=== PATIENT | male | born 1960 | race Caucasian/White ===

== ENCOUNTER 2024-08-19 16:40 | Inpatient (IN) ==
[2024-08-19] MEDS: MoRPHine SULFATE 2 MG/ML CARP ONE ×2 (16:50→16:58)
[2024-08-19] MEDS: NITROGLYCERIN/D5W 100MCG/ML 250 ML IV SCH (16:51)
[2024-08-19] MEDS: SODIUM CHLORIDE 0.9% 1,000 ML IV SCH (16:56)
[2024-08-19] MEDS: MoRPHine SULFATE 4 MG/ML 1 ML CARP\\VIAL IV STA (16:59)
[2024-08-19 17:04] LABS: iSTAT Creatinine 1.2 mg/dl (0.6-1.3); iSTAT Ionized Calcium 1.02 mmol/l (1.12-1.32)
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
[2024-08-19 17:08] LABS: Basophils # (auto) 0.07 K/uL (0.00-0.20); Basophils % (auto) 0.6 %; Eosinophils % (auto) 0.9 %; Hematocrit (blood only) 42.6 % (42.0-52.0); Hemoglobin 15.2 g/dl (14.0-18.0); Immature Granulocytes # (auto) 0.06 K/uL (0.01-0.20); Immature Granulocytes % (auto) 0.6 %; Lymphocytes # (auto) 2.22 K/uL (1.20-3.40); Lymphocytes % (auto) 20.4 %; Mean Corpuscular Hemoglobin 30.3 pg (25.0-34.0); Mean Corpuscular Hgb Conc 35.7 g/dL (32.0-36.0); Mean Corpuscular Volume 84.9 fL (80.0-100.0); Mean Platelet Volume 11.9 fL (9.4-12.4); Monocytes # (auto) 0.59 K/uL (0.11-0.59); Monocytes % (auto) 5.4 %; Neutrophils # (auto) 7.86 K/uL (1.40-6.50); Neutrophils % (auto) 72.1 %; Platelet Count 222 K/uL (130-400); RDW Coefficient of Variation 12.9 % (11.5-14.5); RDW Standard Deviation 39.6 fL (36.4-46.3); Red Blood Count 5.02 M/uL (4.70-6.10)
[2024-08-19] MEDS: TICAGRELOR 90 MG TAB PO ONE (17:12)
[2024-08-19] MEDS: HEPARIN SOD (PORCINE) 1000 UNIT/ML IV ONE (17:13)
--- NOTE | 2024-08-19 17:13 | XRay Report ---
EXAM: Radiograph of the Chest 1 View INDICATION: Chest pain. TECHNIQUE: Frontal view of the chest. COMPARISON: No relevant prior studies available. FINDINGS: Lungs and pleural spaces: There is a suspected small right subpulmonic pleural effusion with lateral deviation of the diaphragmatic dome. No pneumothorax. Diffuse prominent pulmonary vasculature without pulmonary edema or infiltrate. Heart: Prominent cardiac shadow accentuated by technique. Mediastinum: Normal contour. Bones/joints: No fracture, erosion or dislocation. Soft tissues: No abnormality noted. No radiopaque foreign body noted. Upper abdomen: No abnormality noted. IMPRESSION: Suspect small subpulmonic right pleural effusion and pulmonary vascular congestion. No pulmonary edema. ACT 112: Negative or not required by law. Electronically signed by Katherine Figueroa 08-19-2024 5:12 PM
[2024-08-19] MEDS: PANTOprazole 40 MG/10 ML SYR IV ONE (17:17)
[2024-08-19 17:27] LABS: Albumin Globulin Ratio 1.8 (0.9-2); Albumin Level 4.7 gm/dl (3.4-5.0); BUN Creatinine Ratio 16.9 (10-20); Bilirubin,Total 0.6 mg/dl (0.2-1.0); Calcium 9.8 mg/dl (8.6-10.3); Creatinine Clr Calc Pharmacy 69.7 ml/min; Globulin 2.6 gm/dl (2.5-4.0); Total Protein 7.3 gm/dl (6.0-8.3)
[2024-08-19] MEDS: MoRPHine SULFATE 2 MG/ML CARP IV PRN (17:30)
[2024-08-19 17:35] LABS: Partial Thromboplastin Ratio 0.9; Partial Thromboplastin Time 23 Seconds (21-31); Prothrombin Time 10.4 Seconds (9.0-12.0)
[2024-08-19 17:42] LABS: Thyroid Stimulating Hormone 1.102 uIu/ml (0.300-4.500)
--- NOTE | 2024-08-19 17:42 | Pre Anesthesia Assessment ---
Date of Service August 19, 2024 Pre Sedation Assessment Vital Signs Temp Pulse Pulse Resp BP BP Pulse Ox 08/19/24 17:30 134/94 08/19/24 17:26 74 08/19/24 17:22 130/90 08/19/24 17:21 76 21 99 08/19/24 17:18 87 17 99 08/19/24 17:15 145/91 H 08/19/24 17:06 150/99 H 08/19/24 16:57 99 08/19/24 16:57 99 08/19/24 16:43 97.3 F L 85 20 153/98 H 99 08/19/24 16:43 99 08/19/24 16:43 97.3 F L 75 20 153/98 H 99 O2 Del Method 08/19/24 17:30 08/19/24 17:26 08/19/24 17:22 08/19/24 17:21 08/19/24 17:18 08/19/24 17:15 08/19/24 17:06 08/19/24 16:57 Room Air 08/19/24 16:57 Room Air 08/19/24 16:43 Room Air 08/19/24 16:43 Room Air 08/19/24 16:43 Room Air Cardiovascular + regular rate Respiratory + respiratory effort normal Pre-Sedation Airway Assessment Smoking Status: Never smoker Hx Sleep Apnea: No Hx Difficult Intubation: No Short, Thick Neck: No Thyromental Distance: < 3.5 Finger Breadths Oral Cavity: + Dental Abnormalities Mallampati Class: III ASA: ASA3 Procedure Planning Contraindications for Sedation: none Current Medications Reviewed: Yes Notes The planned sedation has been discussed with the patient. Informed Consent was obtained. I have identified the patient, determined the appropriateness of sedation and have assessed the patient immediately prior to the procedure. All medicine(s) and interventions are by my order.
[2024-08-19 17:43] LABS: Troponin I High Sensitivity 73.3 pg/ml (0-20)
[2024-08-19] MEDS: niCARdipine HCL INJ 2.5 MG/ML 10 ML AMP ONE (17:48)
[2024-08-19] MEDS: niCARdipine 2,000 MCG/20 ML SYR ONE (17:48)
[2024-08-19] MEDS: NITROGLYCERIN/D5W 100MCG/ML 20ML SYR ONE (17:48)
--- NOTE | 2024-08-19 17:48 | Cardiology Consultation ---
Date of Consultation August 19, 2024 Assessment & Plan (1) ST elevation myocardial infarction (STEMI) of anterior wall: Plan Presentation consistent with anterior STEMI and recommend proceeding with emergent cardiac catheterization and likely primary PCI. No apparent contraindications to procedure. Discussed risks, benefits, alternatives of procedure with patient and they are willing to proceed. Given IV heparin and ticagrelor 180 mg in the ED. Further recommendations pending findings of coronary angiography. History of Present Illness History of Present Illness Mr. Judd is a 64-year-old man here with acute chest pain and ECG concerning for acute NC. Patient seen emergently in the ED after heart alert activated after persistent chest pain and ECG showing anterior ST elevation. He was previously seen by Dr. Salinas once for ASCVD primary prevention in the setting of significant family history. He had a normal exercise stress test 12/2021. Echo showed hyperdynamic LV, mild LVH and no significant valve disease. Other cardiac risk factors include borderline diabetes on metformin, hypertension, dyslipidemia (statin intolerance). Other medical issues include lumbar stenosis, osteoarthritis, GERD, migraines. Chest pain began approximately 45 minutes prior to arrival (1615) while out hunting. Describes substernal pain with associated nausea, diarrhea and diaphoresis. Denies similar symptoms in the past. Given nitroglycerin in route. Chest pain ongoing on arrival and persisted despite sublingual and IV nitroglycerinm hemodynamically stable. EKG showed sinus rhythm with anterior ST elevations. Family history: Brother from [place] at age 59, father from [place] at 67. Sisters with diabetes. Social history: and lives with his . 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 Allergies Allergy/AdvReac Type Severity Reaction Status Date / Time No Known Allergies Allergy Verified 07/18/24 16:28 Home Medications Medication Instructions Recorded Confirmed Type esomeprazole magnesium 20 mg 20 mg PO QPM 09/19/21 08/19/24 History capsule,delayed release (Nexium) diclofenac sodium 75 mg 75 mg PO QPM #90 tabs 02/04/24 08/19/24 Rx tablet,delayed release lisinopril 20 mg tablet 20 mg PO QPM #90 tabs 02/16/24 08/19/24 Rx rizatriptan 10 mg tablet 10 mg PO Q2H PRN migraine headache 05/23/24 08/19/24 Rx #10 tabs acetaminophen 500 mg tablet 1,000 mg PO Q6H PRN Pain/Fever 06/23/24 08/19/24 History multivitamin 1 tab PO QAM 06/23/24 08/19/24 History metformin 500 mg tablet 500 mg PO DAILY #90 tabs 08/07/24 08/19/24 Rx Patient History Medical History Dyslipidemia Hypertension Cardiac murmur hx - no problems currently Heartburn Surgical History History of cataract surgery No pertinent past surgical history Family History Sister FHx: diabetes mellitus Diabetes Mother FHx: diabetes mellitus Diabetes Father FHx: diabetes mellitus Diabetes Other No family history of adverse response to anesthesia Denies family history of Ovarian cancer Prostate cancer Dementia Depression Heart disease Myocardial infarction Breast cancer Lung cancer Colorectal cancer Stroke Social History Smoking Status: Never smoker Tobacco Type: Smokeless Tobacco (Dip or Chew) Age Started Using Tobacco: 21; Second Hand Exposure: Yes; Do You Dip or Chew Tobacco: Yes (1 can/2 days (advised)); Hx Alcohol Use: No Hx Substance Use: No Preferred Language: Italian Communication Ability: Effective Visual Impairment: Limited Hearing Ability: Normal Pulp Bleacher Required: No Beliefs That Will Affect Care: None marital status: Current Living Situation: Spouse and Family current occupational status: employed How many Children do You have: 1 Feels Safe at Home: Yes Childhood Exposure to Second-Hand Smoke: No Diet: regular caffeine: Yes Dental Care, Regularly: Yes Physical Activity Frequency: 3-4 Times per Week Physical Activity Frequency Comment: Walking a mile Seatbelt Use: always Sunscreen Use: Yes Assistive Devices: Glasses Review of Systems Review of Systems: Not obtained in the setting of emergent situation Physical Exam Physical Exam: General: Uncomfortable HEENT: Sclerae anicteric Lungs: Clear to auscultation Cardiac: Regular, no murmurs Vascular: 2+ radial Abdomen: Soft, nontender Extremities: Well perfused, no peripheral edema Neuro: Nonfocal Psych: Alert orient x3, normal affect and mood Results & Data Vital Signs (Past 12 Hours) Vital Signs Temp Pulse Pulse Resp BP BP Pulse Ox 08/19/24 17:30 134/94 08/19/24 17:26 74 08/19/24 17:22 130/90 08/19/24 17:21 76 21 99 08/19/24 17:18 87 17 99 08/19/24 17:15 145/91 H 08/19/24 17:06 150/99 H 08/19/24 16:57 99 08/19/24 16:57 99 08/19/24 16:43 97.3 F L 85 20 153/98 H 99 08/19/24 16:43 99 08/19/24 16:43 97.3 F L 75 20 153/98 H 99 O2 Del Method 08/19/24 17:30 08/19/24 17:26 08/19/24 17:22 08/19/24 17:21 08/19/24 17:18 08/19/24 17:15 08/19/24 17:06 08/19/24 16:57 Room Air 08/19/24 16:57 Room Air 08/19/24 16:43 Room Air 08/19/24 16:43 Room Air 08/19/24 16:43 Room Air PG Care Time/CCT Total # of Minutes Spent Total Time Spent with Patient: Total time spent is greater than 50% in coordination of care (as documented) at patient's floor/unit and/or counseling patient: Coding Level of Care Code 59384 OFFICE CONSULT LVL Diagnoses ST elevation myocardial infarction (STEMI) of anterior wall I21.09
[2024-08-19] MEDS: HEPARIN (PORCINE) 1000 UNIT/ML 10 ML (CATH LAB USE ONLY) ONE (18:44)
[2024-08-19] MEDS: fentaNYL citrate PF 100 MCG/2 ML VIAL ONE ×2 (18:44→18:51)
[2024-08-19] MEDS: MIDAZOLAM HCL 1 MG/ML 2ML VIAL ONE ×3 (18:45→20:44)
[2024-08-19] MEDS: AMIODARONE 150MG / 100ML D5W (CATH LAB USE ONLY) IV ONE (18:46)
[2024-08-19] MEDS: AMIODARONE 360MG / 200ML D5W (CATH LAB USE ONLY) IV ONE (18:46)
[2024-08-19] MEDS: ATROPINE SULFATE 0.1 MG/ML 10ML SYR IV ONE (19:54)
[2024-08-19] MEDS: EPTIFIBATIDE 2 MG/ML 10 ML VIAL (CATH LAB USE ONLY) IV ONE (19:55)
[2024-08-19] MEDS: EPTIFIBATIDE 0.75 MG/ML 75MG VIAL (CATH LAB USE ONLY) IV ONE (19:56)
[2024-08-19] MEDS: OPTIRAY 350 ONE (19:58)
[2024-08-19] MEDS: AMIODARONE / D5W 360 MG/200 ML BAG IV ONE (20:00)
--- NOTE | 2024-08-19 20:11 | Post Anesthesia Assessment ---
Date of Service August 19, 2024 Post Sedation Assessment Vital Signs Temp Pulse Pulse Resp BP BP Pulse Ox 08/19/24 17:30 134/94 08/19/24 17:26 74 08/19/24 17:22 130/90 08/19/24 17:21 76 21 99 08/19/24 17:18 87 17 99 08/19/24 17:15 145/91 H 08/19/24 17:06 150/99 H 08/19/24 16:57 99 08/19/24 16:57 99 08/19/24 16:43 97.3 F L 85 20 153/98 H 99 08/19/24 16:43 99 08/19/24 16:43 97.3 F L 75 20 153/98 H 99 O2 Del Method 08/19/24 17:30 08/19/24 17:26 08/19/24 17:22 08/19/24 17:21 08/19/24 17:18 08/19/24 17:15 08/19/24 17:06 08/19/24 16:57 Room Air 08/19/24 16:57 Room Air 08/19/24 16:43 Room Air 08/19/24 16:43 Room Air 08/19/24 16:43 Room Air Recovery Score Activity: Moves 4 extremities Respiration: Deep Breath/Cough Circulation: +/-20% PreAnes Value Consciousness: Fully Awake Oxygen Saturation: O2 needed for >90% Discharge Sedation Level of Care: Fast Track Phase II Post Sedation Plan On clinical assessment, the patient appears to have tolerated the sedation without complications. Patient is recovering as anticipated. Patient will continue to be monitored by nursing and may be discharged when sedation discharge criteria are met per below protocol. Upon Completions of procedure up to 15 minutes continue every 5 minute vital si gns and the P.A.R. score; then discharge to a Phase I or Fast Track to Phase II per the following guidelines: * Discharge Patient to appropriate Phase II area if PAR is 8 or greater or return to pre- procedure baseline. The post - procedure orders will be as directed. * If PAR score is less than 8 or not return to pre-procedure baseline then patient will follow Phase I monitoring till PAR is reached for Phase II. The Phase I may be done in procedure room or may call to secure a Phase I area. * If naloxone or flumazenil are used for reversal, hold in Phase I for continued monitoring from when last reversal dose was given for a minimum of 60 minutes or longer pending the nurse and/or physician discretion of patient condition before discharge to Phase II. Please call the Sedation Physician to re-evaluate and complete post-note for discharge to Phase II area. Do NOT discharge from procedure sedation or Phase 1 until post- sedation evaluation note is complete by procedure /sedation MD Sedation Discharge Instructions to be given to the patient at discharge to home.
[2024-08-19] MEDS ORDERED: ONDANSETRON INJ 2 MG/ML 2 ML VIAL IV PRN (20:13)
[2024-08-19] MEDS ORDERED: ACETAMINOPHEN 325 MG TAB PO PRN (20:13)
[2024-08-19] MEDS ORDERED: NITROGLYCERIN SL 0.4 MG/TAB TAB SL PRN (20:13)
--- NOTE | 2024-08-19 20:13 | Cardiac Catheterization ---
[facility] Data: Personal Injury Law Specialist Cardiac Status Clinical evaluation leading to the procedure CAD Presenation: STEMI Anginal Classification: CCS IV Diagnostic Physicians Name: Chetan Briscoe MD Closure Device Recommendations: PCI without planned CABG Cardiac Cath Procedure Full Procedure Date August 19, 2024 Pre-Procedure Diagnosis Pre-Procedure Diagnosis: STEMI AUC Score AUC Score: 9 Post-Procedure Diagnosis Post-Procedure Diagnosis: Severe CAD Procedure(s) Performed Procedure(s) Performed: Coronary Angiography Scientific Research Manager Chetan Briscoe MD Customer Service Cashier(s) Property And Casualty Insurance Agent Estimated Blood Loss Estimated Blood Loss: 50 Medication(s) Medication(s): Fentanyl, Heparin, Integrilin, Lidocaine 1%, Nicardipine, Nitroglycerin, Norepinephrine and Versed Medication(s): Amiodarone Summary of Findings Indication: STEMI/Heart Alert Access: 6 Fr slender right radial artery Catheters: EBU 3.5 guide, diagnostic JR4 Findings: LM -normal caliber, calcified with 50 to 60% distal stenosis at bifurcation LAD -medium caliber, calcified proximally, 100% ostial occlusion Circumflex -medium caliber, calcified ostium 30% earlymid at takeoff of OM1. Small distal AV groove circumflex without significant disease. Small to medium OM1 60-70% ostial stenosis medium OM2 30% diffuse proximal to mid disease RCA -medium caliber, dominant, 20-30% proximal to mid disease, focal 90+% mid stenosis at takeoff of acute marginal. Distal RCA with luminal irregularities. RPDA, PLB without significant disease. LVEDP -32 -- PCI -- Antithrombotic therapy: Heparin, Integrilin, ticagrelor Procedure: Left main cannulated with EBU 3.5 guide Panel Raiser Operator 50 wire passed across lesion into distal vessel Proximal LAD dilated with 2.5 balloon, partially expanded Kemp IVUS catheter placed and unable to pass into LAD due to heavily c alcified, severe distal left main disease. Whisper wire passed into circumflex/OM1 With the aid of a GuideLiner able to pass 3.0 shockwave intravascular lithotripsy balloon into proximal LAD Proximal LAD, distal left main dilated with 90 pulses of intravascular lithotripsy balloon Proximal to mid LAD stented with 2.5 x 22 mm [place] stent across takeoff of D1 Second JONATHAN (4.0 x 18 mm [place]) placed from mid left main across proximal LAD and overlapping proximal aspect of initial stent Attempt made to rewire into circumflex with multiple wires initially unsuccessful Noted to have haziness and partially compromised flow and circumflex with development of inferior ST elevation, increased ventricular ectopy/AIVR and borderline hypotension Started on amiodarone, Integrilin infusion and low-dose norepinephrine Left main/proximal LAD stent postdilated with 4.5 NC Following post dilation able to rewire into circumflex with marine radio installer and servicer 50 wire Ostium of jailed circumflex dilated through stent struts with 2.0 balloon Ostium/proximal circumflex stented with 2.5 x 12 mm [place] stent extending back to left main in T formation Kissing balloon inflation and left main with 3.5 compliant balloon in LAD, 2.5 stent balloon and circumflex Mid LAD stent further postdilated with 3.5 compliant balloon Repeat IVUS showed well-expanded mid LAD stent, mild residual ostial LAD stenosis, left main stented portion well-expanded and well apposed with no significant stent struts extending into LM. Post procedure angiography revealed ALEIDA 3 flow, stents well expanded with minimal residual stenosis. Residual stenosis and jailed D1 and OM1 but ALEIDA-3 flow. Norepinephrine, Integrilin off at end of case. Arterial Closure: TR band Summary: 1. Anterior STEMI 2. Acute 100% occluded ostial LAD 3. 50-60% calcified distal left main 4. Severe nonculprit coronary disease 90+% mid RCA 60 to 70% smallmedium OM1 5. Elevated left-sided filling pressures 6. Successful PCI of ostial LAD occlusion/left main disease with intravascular lithotripsy and 2 overlapping drug-eluting stents from mid left main to mid LAD (4.0 x 18, 2.5 x 22 mm [place]; postdilated proximally with 4.5 NC, 3.5 in mid LAD). 7. Successful PCI of jailed ostial/proximal circumflex with additional JONATHAN (2.5 x 12 mm [place]; T formation). Recommendations: Admit to ICU for continued monitoring IV diuresis Loaded with ticagrelor 180 mg in Personal Injury Law Specialist Continue dual-antiplatelet therapy for at least 1 year, likely indefinitely Trend troponins until peak, Check Echo Uptitrate beta-yordan/ARB as BP allows High-dose statin (previously intolerant to rosuvastatin, will try atorvastatin, likely will need PCSK9 as outpatient) Consult cardiac Rehab Plan on staged PCI of mid RCA during this hospitalization. Hemodynamics Rest Ao:: 154/99/123 Final Ao: 117/89/101 LV: 123/32 Recommendations Recommendations: PCI without planned CABG Radiation Exposure (mGy) 7321 Contrast (mls) 150 Anesthesia Moderate 3516-8000 Procedural Complication(s) None Disposition ICU I attest to the content of the Intraoperative Record and any orders documented therein. Any exceptions are noted below. iTaggitG Card Cath Procedure Codes Cardiac Catheterization Procedure 1: Cardiovascular Cath Procedures: 76808 Coronaries and LHC (+/-LV) Therapeutic Services & Ancillary Procedure 1: Cardiovascular Tx and Anc Procedures: 83202 IV Ultrasound (Coronary or Graft) Moderate Sedation Procedure 1: Sedation/Anesthesia: 46759 Mod Sedation by the same physician;Init15 Min Child Age 5 & Up Procedure 2: Sedation/Anesthesia: 34999 Mod Sedation by the same physician; Ea [id number] Minutes Angioplasty Procedure 1: Cardiovascular Angioplasty Procedures: 56978 Perq Trluml Coronry Lithotrp Stenting Procedure 1: Cardiovascular Stent Procedures: 65721 Perc transluminal revascularization of acute sub/total occl, aMI PG Care Time/CCT Total # of Minutes Spent Total Time Spent with Patient: Total time spent is greater than 50% in coordination of care (as documented) at patient's floor/unit and/or counseling patient:
[2024-08-19] MEDS: NOREPINEPHRINE/D5W 4 MG/250 ML IV ONE (20:44)
[2024-08-19] MEDS: ICU Protocol for HYPERglycemia SCH ×2 (20:44→20:45)
[2024-08-19] MEDS ORDERED: 0.2 MICRON FILTER SET 1 EACH IV ONE (21:02)
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
--- NOTE | 2024-08-19 21:12 | Critical Care Consultation ---
Date of Consultation August 19, 2024 Assessment & Plan (1) ST elevation myocardial infarction (STEMI) of anterior wall: Also multivessel CAD Plan APAP PRN pain/fever. Hold Voltaren with ASA therapy ongoing. MVI. Consider nicotine patch. S/P DESx3. Plan is for staged PCI of non-culprit RCA lesion this admission. Trend troponin. Start BB and ACEI. Reperfusion ectopy being monitored. Continue amiodarone given new atrial fibrillation. Ensure electrolytes repleted to goal. Continue DAPT, high-dose statin. Check lipid panel and A1c. Give 20mg IV furosemide 2/2 elevated LVEDP. Monitor volume status. TTE pending. IS/Flutter. Encourage deep breathing. SpO2 goal > 92% Diet: Advance as tolerated to heart healthy. SUP: Home PPI. Bowel regimen: PRN BG 140-180 per SCCM guidelines. A1c 6.2% in July. Hold Metformin while inpatient. No current indication for empiric antibiotics. Leukocytosis reactive. No current indication for lamb catheter. Will monitor I/Os Q2-4H. Furosemide as above. Baseline Cr: Unknown. Current Cr: 1.2. Replete electrolytes. Recheck BMP and Mg now given arrhythmia. DVT PPX: Start 08/20 Full code History of Present Illness Reason for Consultation: STEMI Requesting Physician: Aravind Attending Physician: Narendra Ricks MD History of Present Illness Mr. Cristiano Judd is a pleasant 64YOM with a history of hypertension, hyperlipidemia, lumbar stenosis/radiculopathy, GERD, and a strong family history of heart disease who presented to [facility] ED due to chest pain after exertion. Per report, patient [place] when he developed crushing central chest pain, shortness of breath, and nausea. He received aspirin load and sublingual nitroglycerin prehospital. Hypertensive, otherwise VSS on arrival to ED. EKG showing anterior STEMI. Patient loaded with Brilinta, received h eparin bolus, and transferred to cardiac catheterization lab with Dr. Briscoe. Coronaries accessed via R radial. Patient found to have multivessel CAD including acute ostial LAD occlusion, focal 90+% stenosis of mid-RCA and mild to moderate disease of LAD, LM, and LCx. Underwent successful PCI to acute occlusion via overlapping JONATHAN LM to mid-LAD, successful PCI via JONATHAN to proximal LCx with ALEIDA III flow. LVEDP 32mmHg. Did require 6L O2 via NC throughout. Had episode of hypotension briefly requiring norepinephrine as well as arrhythmia requiring amiodarone bolus and infusion. Admitted to ICU for continuation of care. Patient seen in ICU 110. Hemodynamically stable and in no acute distress. Afebrile. He is AAOx3. No current complaints. Admits to mild soreness of central chest, but this is significantly improved from prior. He has converted to atrial fibrillation which is a new finding for him. Denies headache, shortness of breath, nausea, abdominal pain, numbness/paresthesias, fevers/chills, visual deficits, weight changes. Allergies Allergy/AdvReac Type Severity Reaction Status Date / Time No Known Allergies Allergy Verified 07/18/24 16:28 Home Medications Medication Instructions Recorded Confirmed Type esomeprazole magnesium 20 mg 20 mg PO QPM 09/19/21 08/19/24 History capsule,delayed release (Nexium) diclofenac sodium 75 mg 75 mg PO QPM #90 tabs 02/04/24 08/19/24 Rx tablet,delayed release lisinopril 20 mg tablet 20 mg PO QPM #90 tabs 02/16/24 08/19/24 Rx rizatriptan 10 mg tablet 10 mg PO Q2H PRN migraine headache 05/23/24 08/19/24 Rx #10 tabs acetaminophen 500 mg tablet 1,000 mg PO Q6H PRN Pain/Fever 06/23/24 08/19/24 History multivitamin 1 tab PO QAM 06/23/24 08/19/24 History metformin 500 mg tablet 500 mg PO DAILY #90 tabs 08/07/24 08/19/24 Rx Patient History Medical History Dyslipidemia Hypertension Cardiac murmur hx - no problems currently Heartburn Surgical History History of cataract surgery No pertinent past surgical history Family History Sister FHx: diabetes mellitus Diabetes Mother FHx: diabetes mellitus Diabetes Father FHx: diabetes mellitus Diabetes Other No family history of adverse response to anesthesia Denies family history of Ovarian cancer Prostate cancer Dementia Depression Heart disease Myocardial infarction Breast cancer Lung cancer Colorectal cancer Stroke Social History Smoking Status: Never smoker Tobacco Type: Smokeless Tobacco (Dip or Chew) Age Started Using Tobacco: 21; Second Hand Exposure: Yes; Do You Dip or Chew Tobacco: Yes (1 can/2 days (advised)); Hx Alcohol Use: No Hx Substance Use: No Preferred Language: Irish Communication Ability: Effective Visual Impairment: Limited Hearing Ability: Normal Brand Director Required: No Beliefs That Will Affect Care: None marital status: Current Living Situation: Spouse and Family current occupational status: employed How many Children do You have: 1 Feels Safe at Home: Yes Childhood Exposure to Second-Hand Smoke: No Diet: regular caffeine: Yes Dental Care, Regularly: Yes Physical Activity Frequency: 3-4 Times per Week Physical Activity Frequency Comment: Walking a mile Seatbelt Use: always Sunscreen Use: Yes Assistive Devices: Glasses Review of Systems Review of Systems: All systems reviewed & are unremarkable except as noted in HPI & below Physical Exam Constitutional: WD/WN, vitals as above Eyes: PERRL, conjunctivae normal, anicteric sclerae ENMT: external ear and nose normal, oropharynx normal Neck: trachea midline, no thyromegaly Respiratory: normal respiratory effort, lungs clear to auscultation Cardiovascular: Rate/Rhythm: + tachycardic and + irregularly irregular Heart Sounds: no murmur Vessels: normal peripheral pulses; no JVD Extremities: normal capillary refill; no calf tenderness and no edema R radial access site hemostatic with good peripheral pulses Gastrointestinal (Abdomen): normal bowel sounds, soft, nontender, no hepa tosplenomegaly Musculoskeletal: no cyanosis or clubbing, extremities motor strength 5/5 Skin: no rashes, warm and dry Neurologic: PERRL, EOMI, accommodation nl, no face palsy, no dysarthria Psychiatric: A+Ox3, euthymic affect Genitourinary: Deferred Results & Data Results & Data Vital Signs (Past 12 Hours) Vital Signs Temp Pulse Pulse Resp BP BP Pulse Ox 08/19/24 17:30 134/94 08/19/24 17:26 74 08/19/24 17:22 130/90 08/19/24 17:21 76 21 99 08/19/24 17:18 87 17 99 08/19/24 17:15 145/91 H 08/19/24 17:06 150/99 H 08/19/24 16:57 99 08/19/24 16:57 99 08/19/24 16:43 36.3 C L 85 20 153/98 H 99 08/19/24 16:43 99 08/19/24 16:43 36.3 C L 75 20 153/98 H 99 O2 Del Method 08/19/24 17:30 08/19/24 17:26 08/19/24 17:22 08/19/24 17:21 08/19/24 17:18 08/19/24 17:15 08/19/24 17:06 08/19/24 16:57 Room Air 08/19/24 16:57 Room Air 08/19/24 16:43 Room Air 08/19/24 16:43 Room Air 08/19/24 16:43 Room Air Laboratory Results Reviewed Diagnostic Findings Reviewed Medications Administered See MAR Coding Level of Care Code 94820 IN/OBS CONSULT LVL 2,35M Diagnoses ST elevation myocardial infarction (STEMI) of anterior wall I21.09 Time Spent (min) 35
[2024-08-19] MEDS: METOPROLOL TARTRATE 25 MG TAB PO SCH (21:24)
[2024-08-19 21:50] LABS: BUN Creatinine Ratio 17.8 (10-20); Calcium 9.1 mg/dl (8.6-10.3); Creatinine Clr Calc Pharmacy 76.9 ml/min; Potassium 3.7 mmol/L (3.5-5.1)
[2024-08-19 22:32] LABS: Troponin I High Sensitivity 52859.6 pg/ml (0-20)
[2024-08-19] MEDS: MAGNESIUM SULFATE / D5W 1 GM/100 ML BAG IV ONE (23:10)
[2024-08-19] MEDS: FUROSEMIDE INJ 20 MG/2 ML VIAL IV ONE ×2 (23:15→23:22)
[2024-08-19] MEDS: POTASSIUM CHLORIDE CRTAB 20 MEQ TABCR PO STA (23:15)
[2024-08-19] MEDS: STAT IV Infusion **Titration per Protocol STA (23:22)
[2024-08-20] MEDS: AMIODARONE / D5W 360 MG/200 ML BAG IV SCH
[2024-08-20 01:01] VITALS: TEMP 97.5
[2024-08-20] MEDS ORDERED: RAPID SEQUENCE INDUCTION BAG ONE (03:23)
[2024-08-20] MEDS ORDERED: PHENYLEPHRINE HCL 25 MG/250 ML NSS IV ONE (03:23)
[2024-08-20] MEDS ORDERED: PROPOFOL IV EMULSION 10 MG/ML 100 ML VIAL IV ONE (03:30)
[2024-08-20] MEDS ORDERED: AMIODARONE 150MG / 100ML D5W IV ONE (03:35)
--- NOTE | 2024-08-20 03:42 | Emergency Department Note ---
ED Visit Note Called to the ICU for CODE BLUE. CPR was started and ICU provider was at bedside. Upon presentation patient was vomiting unresponsive. He was not protecting his airway. Patient was intubated by myself at bedside as CPR was in progress. 7 and half ET tube was placed. EM PROCEDURE NOTE - Endotracheal Intubation PROCEDURE NOTE: Informed consent was not obtained by the patient. Verify Correct Patient: yes Procedure: Endotracheal intubation Indication: Cardiac arrest The procedure was done emergently. Description of the Procedure: The patient was seen and properly identified. The patient was pre-oxygenated and intubated after rapid sequence induction with meds: No meds as cardiac arrest was in progress. Intubation was performed using glide a scope and 7.5 cuffed endotracheal tube. The tube was visualized going through the cords and secured with the 23cm farhad at the lips. The patient had good bilateral breath sounds in the axillae with good chest rise. Proper ET tube placement was confirmed by end tidal CO2 detector. The patient tolerated the procedure well. .
[2024-08-20] MEDS ORDERED: EPINEPHrine/NSS 4 MG/254 ML BAG IV SCH (03:45)
[2024-08-20 04:08] LABS: iSTAT Art Bld Gas pCO2 Correct 85 mmHg (35-46); iSTAT Art Bld Gas pH Corrected 7.172 (7.35-7.45); iSTAT Arterial Blood Gas HCO3 32 meg/L (19-24); iSTAT Arterial Blood Gas pCO2 93 mmHg (35-46); iSTAT Arterial Blood Gas pH 7.15 (7.35-7.45); iSTAT Arterial Blood Gas pO2 55 mmHg (80-95); iSTAT Arterial Blood Gas pO2 C 47; iSTAT Carbon Dioxide 35 mmol/L (24-31); iSTAT FiO2 100 %; iSTAT Hematocrit 38 % (42-52); iSTAT Hemoglobin 12.9 g/dl (14.0-18.0); iSTAT Potassium 3.6 mmol/L (3.3-5.0); iSTAT Sample Type Arterial; iSTAT Site R Brachial; iSTAT Sodium 158 mmol/L (135-144)
--- NOTE | 2024-08-20 04:27 | Death Pronouncement Note ---
Date of Service August 20, 2024 Pronouncement Note Admission Date August 19, 2024 Date and Time of Date of : 08/20/24 Time of : 04:18 Preliminary Cause of (1) ST elevation myocardial infarction (STEMI) of anterior wall: Contributing Factors Hypertension Hyperlipidemia Impaired Fasting Glucose Family History of CAD Summary 64yo male admitted 08/19/24 with anterior STEMI s/p cardiac catheterization with successful stent placement x 3. Patient admitted to MICU, continued on DAPT with ASA and Brillinta, continued on Amiodarone gtt for new onset atrial fibrillation. Patient with PVCs noted on monitor and several asymptomatic episodes of NSVT. Patient having a BM when he developed nausea and vomiting. Subsequently noted to be in ventricular fibrillation. Code Blue was initiated at 03:19. For details of code please see Code Blue Report. Time of 04:18 Patient in a terminal state with absence of spontaneous heart tones or breathing, absence of corneal reflexes. No withdrawal from noxious stimuli. notified and was present at the bedside for a portion of patient's code Dr. Briscoe of Interventional Cardiology was notified and present at the bedside for portion of patient's code Additional Data Confirmation of : no pulse, no respirations, no heart sounds and pupils fixed and dilated Pronouncement Performed By: Attending Physician Family: at bedside Attending/PCP notified?: Yes Attending physician: Narendra Ricks MD Was code activated?: Yes Autopsy requested?: No adjustment examiner notified?: Yes Coding Level of Care Code 69240 INP/OBS DISCH >[address] elevation myocardial infarction (STEMI) of anterior wall I21.09
--- NOTE | 2024-08-20 04:35 | Procedure Note ---
Procedure Note Date of Service August 20, 2024 Responded to Code Blue overhead. CPR was initiated and conducted as per ACLS protocol. Events leading up to code: Patient had bowel movement. Suddenly developed projectile emesis, diaphoresis, pallor, and unresponsiveness. Initial rhythm: Ventricular fibrillation Intubation: Yes. Performed by ED physician without incident. Lines placed: No Defibrillation biphasic 200J x4 Medications: -Epinephrine per protocol -Norepinephrine gtt -Calcium chloride x1 -Sodium bicarbonate x2 -Amiodarone 300mg x1, gtt at 1mg/min -Versed 2mg x2 -Fentanyl 100mcg x2 -Rocuronium 50mg x1 -Propofol gtt Relevant labs: iSTAT 7.146/93/55/32. Na 158. K 3.6. HCT/HGB 38/12.9. POCUS: Dilated LV. No pericardial effusion. Normal RV size. No perfusable cardiac activity. Dr. Briscoe was present at 0354 and helped direct care. Result of code: . TOD 0418. Next of kin: notified See Resuscitation Report Sheet for further details. Critical Care Time: 58 minutes Coding Additional Codes Date of Service ([email or web address])
[2024-08-20 05:22] VITALS: BP 113/85; PULSE 99; RESP 20; O2SAT 98
[2024-08-20] MEDS ORDERED: STAT IV Infusion **Titration per Protocol STA (05:28)
[2024-08-20] MEDS ORDERED: CALCIUM CHLORIDE 10% 10 ML SYR IV ONE (06:59)
[2024-08-20] MEDS ORDERED: SODIUM BICARB 8.4% INJ 50 MEQ/50 ML SYR IV ONE (06:59)
[2024-08-20] MEDS ORDERED: EpINEphrine HCL INJ 1 MG/ML 1ML SYRINGE IR ONE (06:59)
[2024-08-20] MEDS ORDERED: SODIUM CHLORIDE 0.9% 10ML FLUSH IV ONE (06:59)
[2024-08-20] MEDS ORDERED: AMIODARONE HCL INJ 50 MG/ML 3 ML VIAL IV ONE (06:59)
[2024-08-20] MEDS ORDERED: PANTOprazole 40 MG TAB PO SCH (09:00)
[2024-08-20] MEDS ORDERED: TICAGRELOR 90 MG TAB PO SCH (09:00)
[2024-08-20] MEDS ORDERED: LOSARTAN POTASSIUM 25 MG TAB PO SCH (09:00)
[2024-08-20] MEDS ORDERED: ATORVASTATIN 40 MG TAB PO SCH (09:00)
[2024-08-20] MEDS ORDERED: ASPIRIN 81 MG ECTAB PO SCH (09:00)
--- NOTE | 2024-08-21 05:56 | Electrocardiogram Report ---
Test Reason : Blood Pressure : */* mmHG Vent. Rate : 68 BPM Atrial Rate : 68 BPM P-R Int : 188 ms QRS Dur : 72 ms QT Int : 406 ms P-R-T Axes : 62 -16 5 degrees QTcB Int : 431 ms Sinus rhythm with marked sinus arrhythmia Low voltage QRS Anterior infarct ACUTE TN / STEMI Abnormal ECG No previous ECGs available Confirmed by Cristofer Mccabe ([id number]) on 08/21/2024 5:56:08 AM Referred By: REFERRED SELF Confirmed By: Cristofer Mccabe
--- NOTE | 2024-08-21 05:57 | Electrocardiogram Report ---
Test Reason : Blood Pressure : */* mmHG Vent. Rate : 109 BPM Atrial Rate : * BPM P-R Int : * ms QRS Dur : 78 ms QT Int : 352 ms P-R-T Axes : * 63 62 degrees QTcB Int : 474 ms Atrial fibrillation with rapid ventricular response with premature ventricular or aberrantly conducte d complexes Low voltage QRS Anterior infarct Abnormal ECG When compared with ECG of 19-Aug-2024 16:42, Atrial fibrillation has replaced Sinus rhythm ST no longer elevated in Anterior leads Confirmed by Cristofer Mccabe ([id number]) on 08/21/2024 5:57:17 AM Referred By: REFERRED SELF Confirmed By: Cristofer Mccabe
== END 2024-08-20 07:00 | disposition expired | DRG 322 ==
LOC: ED 16:40 → CC 17:47 → 1E 17:48 → CC 17:50